=== PATIENT | female | born 1995 | race Caucasian/White ===

== ENCOUNTER 2017-01-21 02:10 | Emergency (ER) | payer SELFPAY ==
[~2017-01-21] VITALS: Ht 172.7 cm; Wt 81.6 kg
[~2017-01-21 02:10] MED LIST: BCP
--- OUTSIDE RECORDS SUMMARY | 2017-01-21 02:16 | XMS REPORT | Continuity of Care Document ---
Author Author [facility] Address Unknown Phone Unavailable Allergies Medications Problems Date Dx Coded Attending Type Code Diagnosis Diagnosed By 09/27/2009 311 MO DEPRESS NOS 09/27/2009 ROSA MARIA CARDOZA PHD 311 MO DEPRESS NOS 09/27/2009 ROSA MARIA CARDOZA PHD 311 MO DEPRESS NOS 10/12/2009 313.81 CD OPPOSITIONAL DEFIANT 10/12/2009 ROSA MARIA CARDOZA PHD 313.81 CD OPPOSITIONAL DEFIANT 10/12/2009 ROSA MARIA CARDOZA PHD 313.81 CD OPPOSITIONAL DEFIANT 07/23/2011 296.90 MOOD DISORDER NOS 07/23/2011 314.00 ADHD INATTENTIVE 07/23/2011 ROSA MARIA CARDOZA PHD 296.90 MOOD DISORDER NOS 07/23/2011 ROSA MARIA CARDOZA PHD 314.00 ADHD INATTENTIVE 07/23/2011 ROSA MARIA CARDOZA PHD 296.90 MOOD DISORDER NOS 07/23/2011 ROSA MARIA CARDOZA PHD 314.00 ADHD INATTENTIVE 08/24/2011 305.20 CANNABIS ABUSE 08/24/2011 307.1 EA ANOREXIA NERVOSA 08/24/2011 307.51 EA BULIMIA NERVOSA 08/24/2011 783.0 ANOREXIA 08/24/2011 ROSA MARIA CARDOZA PHD 305.20 CANNABIS ABUSE 08/24/2011 ROSA MARIA CARDOZA PHD 307.1 EA ANOREXIA NERVOSA 08/24/2011 ROSA MARIA CARDOZA PHD 307.51 EA BULIMIA NERVOSA 08/24/2011 ROSA MARIA CARDOZA PHD 783.0 ANOREXIA 08/24/2011 ROSA MARIA CARDOZA PHD 305.20 CANNABIS ABUSE 08/24/2011 ROSA MARIA CARDOZA PHD 307.1 EA ANOREXIA NERVOSA 08/24/2011 ROSA MARIA CARDOZA PHD 307.51 EA BULIMIA NERVOSA 08/24/2011 ROSA MARIA CARDOZA PHD 783.0 ANOREXIA 09/05/2011 304.30 CANNABIS DEPENDENCE 09/05/2011 ROSA MARIA CARDOZA PHD 304.30 CANNABIS DEPENDENCE 09/05/2011 ROSA MARIA CARDOZA PHD 304.30 CANNABIS DEPENDENCE 10/05/2011 296.32 MO DEPRESSIVE RECURRENT MODERATE 10/05/2011 ROSA MARIA CARDOZA PHD 296.32 MO DEPRESSIVE RECURRENT MODERATE 10/05/2011 ROSA MARIA CARDOZA PHD 296.32 MO DEPRESSIVE RECURRENT MODERATE 02/05/2012 312.81 CD - CHILDHOOD ONSET TYPE 02/05/2012 ROSA MARIA CARDOZA PHD 312.81 CD - CHILDHOOD ONSET TYPE Procedures Code [place] [address] INDIV PSYTX 45/50 MIN 01/04/2012 29233 INDIV PSYTX 45/50 MIN 02/05/2012 26425 PSYCH FAMILY TX W/PAT 03/19/2012 Results Encounters ACCT No. Visit Date/Time Discharge Status Pt. Type Provider Facility Loc./Unit Complaint [id number] 03/18/2012 14:59:00 03/18/2012 23: 59:59 CLS Outpatient ROSA MARIA CARDOZA PHD [id number] 02/05/2012 17:05:00 02/05/2012 23: 59:59 CLS Outpatient [id number] 01/03/2012 16:10:00 01/03/2012 23: 59:59 CLS Outpatient ROSA MARIA CARDOZA PHD [id number] 05/05/2013 03:06:00 2013 04:07:00 DIS Emergency [id number] 09/06/2012 03:40:00 2012 07:46:00 DIS Emergency
--- OUTSIDE RECORDS SUMMARY | 2017-01-21 02:16 | XMS REPORT ---
Author Author ALISSA DÍAZ [facility] eClinicalWorks Address Unknown Phone Unavailable Care Team Providers Care Correctional Therapy Teacher Name Role Phone ALISSA DÍAZ CP Unavailable Allergies, Adverse Reactions, Alerts Substance Reaction Event Type N.K.D.A. Info Not Available Non Drug Allergy Problems Problem Type Condition Code Onset Dates Condition Status Assessment Acute pharyngitis, unspecified J02.9 Active Problem Conduct disorder, childhood onset type 312.81 Active Problem Cannabis dependence, unspecified abuse 304.30 Active Assessment Seasonal allergies J30.2 Active Problem Attention deficit disorder of childhood without mention of hyperactivity 314.00 Active Problem Bulimia nervosa 307.51 Active Problem Unspecified episodic mood disorder 296.90 Active Problem Anorexia 783.0 Active Problem Major depressive disorder, recurrent episode, moderate 296.32 Active Problem Anorexia nervosa 307.1 Active Problem Nondependent cannabis abuse, unspecified 305.20 Active Medications Medication Code System Code Instructions Start Date End Date Status Dosage Claritin [facility] [address]-77 10 MG Orally Once a day Jan 15, 2015 Mar 16, 2015 1 tablet Procedures Procedure Coding System Code Date Office Visit, Est Pt., Level 3 CPT-4 47173 Jan 15, 2015 STREP A ASSAY W/OPTIC CPT-4 53000 Jan 15, 2015 Vital Signs Date/Time: Jan 15, 2015 Temperature 97.8 F Weight 179 lbs Height 68 in BMI 27.21 Index Blood Pressure Diastolic 82 mmHg Blood Pressure Systolic 104 mmHg Cardiac Monitoring Heart Rate 80 bpm BMIPercentile 89.63 % Wt Percentile 95.07 % Results Name Result Date Reference Range Unit Abnormality Flag STREP A (IN HOUSE) ----STREP A negative 20150115 ----Control + 20150115 ----Lot # [id number] ----Exp date JUN [id number] Summary Purpose eClinicalWorks Submission
[2017-01-21] MEDS ORDERED: LACTATED RINGERS 1,000 ML IV ONE (02:26)
[2017-01-21] MEDS ORDERED: ONDANSETRON 4 MG/2 ML (SDV) Z0FRAN IVP ONE ×2 (02:30→04:15)
--- NOTE | 2017-01-21 02:38 | ED GI ---
General Chief Complaint: Abdominal/GI Problems Stated Complaint: VOMITING Nursing Triage Note: N/V/D SINCE 2199 Sepsis Screen: No Definite Risk Source of Information: Patient History of Present Illness Time Seen By Provider: 02:25 Initial Comments ARRIVES VIA POV C/O NAUSEA/VOMITING/DIARRHEA SINCE 2199 GENARO HAS NO IDEA HOW MANY EPISODES OF VOMITING OR DIARRHEA SHE HAS HAD --STATES "NON- STOP" "AND I CRAPPED MY PANTS A FEW TIMES" . HAS HAD MOSTLY DRY HEAVES UNKNOWN IF SHE HAS HAD FEVER ,BUT STATES SHE HAS "HOT AND COLD FLASHES" DENIES ABDOMINAL PAIN, BUT STATES HER BACK AND STOMACH ARE SORE FROM HEAVING ONLY FOOD INTAKE TODAY WAS MACARONI AND CHEESE, PLUS BRATS AT 1700 NO ONE ELSE ILL AND NO SUSPICIOUS FOODS HAS ONLY DRANK A FEW SIPS OF WATER TODAY, NO OTHER FLUID INTAKE STILL VOIDING A NORMAL AMOUNT NO HISTORY OF GI PROBLEMS LMP--TODAY, NO CONTROL PCP: DR. CISNEROS Allergies and Home Medications Allergies Coded Allergies: No Known Drug Allergies (Unverified , 09/06/12) Home Medications Lactobacillus Acidophilus 1 Gm Powder, 1 GM MC QID for 7 Days, #1 Prescribed by: LEATHA MOCTEZUMA on 01/21/17 0440 Ondansetron 4 Mg Tab.rapdis, 4 MG PO Q4H, #10 Prescribed by: LEATHA MOCTEZUMA on 01/21/17 0346 Review of Systems Constitutional: see HPI Respiratory: No Symptoms Reported Cardiovascular: No Symptoms Reported Gastrointestinal: See HPI, Diarrhea, Nausea, Poor Appetite, Poor Fluid Intake, Vomiting Genitourinary: No Symptoms Reported Musculoskeletal: see HPI Skin: no symptoms reported Psychiatric/Neurological: No Symptoms Reported Endocrine: No Symptoms Reported Hematologic/Lymphatic: No Symptoms Reported Past Onsalbo-Oyciiy-Nonrvg Hx Patient Social History Alcohol Use: Occasionally Uses Number of Drinks Today: 0 Recreational Drug Use: Yes (XANAX--NOT PRESCRIBED TO HER; TESTED + FOR THC, BENZO'S AND OXYCODONE ON 01/21/17) Drug of Choice: XANAX--NOT PRESCRIBED TO HER;TESTED + FOR THC, BENZO'S & OXYCODONE 01/21/17 Smoking Status: Current Someday Smoker Type Used: Cigarettes 2nd Hand Smoke Exposure: Yes Recent Foreign Travel: No Contact w/Someone Who Travel: No Recent Infectious Disease Expo: No Recent Hopitalizations: No Immunizations Up To Date Tetanus Booster (TDap): Unknown Seasonal Allergies Seasonal Allergies: No Surgeries History of Surgeries: No Respiratory History of Respiratory Disorde: No Cardiovascular History of Cardiac Disorders: No Neurological History of Neurological Disord: No Reproductive System : No Last Menstrual Period: Jan 21, 2017 Hx Reproductive Disorders: No Sexually Transmitted Disease: No Female Reproductive Disorders: Denies Genitourinary History of Genitourinary Disor: No Gastrointestinal History of Gastrointestinal Di: No Musculoskeletal History of Musculoskeletal Dis: No Endocrine History of Endocrine Disorders: No HEENT History of HEENT Disorders: No Cancer History of Cancer: No Psychosocial History of Psychiatric Problem: No Integumentary History of Skin or Integumenta: No Blood Transfusions History of Blood Disorders: No Physical Exam Vital Signs VS - Last 72 Hours, by Label 01/21/17 02:25 Temp 96.9 Pulse 88 Resp 18 B/P (MAP) 112/67 (82) Pulse Ox 98 O2 Delivery Room Air Capillary Refill : Less Than 3 Seconds General Appearance: WD/WN, no apparent distress HEENT: PERRL/EOMI, other (ORAL MUCOSA MOIST) Neck: normal inspection Respiratory: normal breath sounds, no respiratory distress, no accessory muscle use Cardiovascular: normal peripheral pulses, regular rate, rhythm, no edema, no murmur Gastrointestinal: normal bowel sounds, non tender, soft, no organomegaly, no pulsatile mass Extremities: normal inspection, no pedal edema, normal capillary refill Back: normal inspection, no CVA tenderness Neurologic/Psychiatric: traffic representative II-XII nml as tested, no motor/sensory deficits, alert, normal mood/affect, oriented x 3 Skin: normal color, warm/dry Progress/Results/Core Measures Results/Orders Lab Results Laboratory Tests Test 01/21/17 02:35 01/21/17 04:18 Range/Units White Blood Count 10.6 4.3-11.0 10^3/uL Red Blood Count 4.48 4.35-5.85 10^6/uL Hemoglobin 13.6 11.5-16.0 G/DL Hematocrit 40 35-52 % Mean Corpuscular Volume 89 80-99 FL Mean Corpuscular Hemoglobin 30 25-34 PG Mean Corpuscular Hemoglobin Concent 34 32-36 G/DL Red Cell Distribution Width 12.5 10.0-14.5 % Platelet Count 201 130-400 10^3/uL Mean Platelet Volume 10.3 7.4-10.4 FL Neutrophils (%) (Auto) 84 H 42-75 % Lymphocytes (%) (Auto) 8 L 12-44 % Monocytes (%) (Auto) 7 0-12 % Eosinophils (%) (Auto) 1 0-10 % Basophils (%) (Auto) 0 0-10 % Neutrophils # (Auto) 8.9 H 1.8-7.8 X 10^3 Lymphocytes # (Auto) 0.8 L 1.0-4.0 X 10^3 Monocytes # (Auto) 0.8 0.0-1.0 X 10^3 Eosinophils # (Auto) 0.1 0.0-0.3 10^3/uL Basophils # (Auto) 0.0 0.0-0.1 10^3/uL Sodium Level 143 135-145 MMOL/L Potassium Level 3.4 L 3.6-5.0 MMOL/L Chloride Level 110 H 98-107 MMOL/L Carbon Dioxide Level 21 21-32 MMOL/L Anion Gap 12 5-14 MMOL/L Blood Urea Nitrogen 13 7-18 MG/DL Creatinine 0.79 0.60-1.30 MG/DL Estimat Glomerular Filtration Rate > 60 BUN/Creatinine Ratio 16 Glucose Level 118 H 70-105 MG/DL Calcium Level 9.0 8.5-10.1 MG/DL Total Bilirubin 0.8 0.1-1.0 MG/DL Aspartate Amino Transf (AST/SGOT) 18 5-34 U/L Alanine Aminotransferase (ALT/SGPT) 8 0-55 U/L Alkaline Phosphatase 72 40-136 U/L Total Protein 7.3 6.4-8.2 GM/DL Albumin 4.1 3.2-4.5 GM/DL Amylase Level 58 25-125 U/L Lipase 15 8-78 U/L Serum Test, Qualitative NEGATIVE NEGATIVE Serum Alcohol < 10 <10 MG/DL Urine Color YELLOW Urine Clarity CLEAR Urine pH 5 5-9 Urine Specific [place] 1.020 1.016-1.022 Urine Protein 1+ H NEGATIVE Urine Glucose (UA) NEGATIVE NEGATIVE Urine Ketones 3+ H NEGATIVE Urine Nitrite NEGATIVE NEGATIVE Urine Bilirubin 1+ H NEGATIVE Urine Urobilinogen NORMAL NORMAL MG/DL Urine Leukocyte Esterase 1+ H NEGATIVE Urine RBC (Auto) 1+ H NEGATIVE Urine RBC NONE /HPF Urine WBC RARE /HPF Urine Squamous Epithelial Cells 2-5 /HPF Urine Crystals NONE /LPF Urine Bacteria TRACE /HPF Urine Casts NONE /LPF Urine Mucus LARGE H /LPF Urine Culture Indicated NO Urine Opiates Screen NEGATIVE NEGATIVE Urine Oxycodone Screen POSITIVE H NEGATIVE Urine Methadone Screen NEGATIVE NEGATIVE Urine Propoxyphene Screen NEGATIVE NEGATIVE Urine Barbiturates Screen NEGATIVE NEGATIVE Ur Tricyclic Antidepressants Screen NEGATIVE NEGATIVE Urine Phencyclidine Screen NEGATIVE NEGATIVE Urine Amphetamines Screen NEGATIVE NEGATIVE Urine Methamphetamines Screen NEGATIVE NEGATIVE Urine Benzodiazepines Screen POSITIVE H NEGATIVE Urine Cocaine Screen NEGATIVE NEGATIVE Urine Cannabinoids Screen POSITIVE H NEGATIVE My Orders Orders - LEATHA MOCTEZUMA DO Saline Lock/Iv-Start (01/21/17 02:26) Alcohol (01/21/17 02:26) Amylase (01/21/17 02:26) Cbc With Automated Diff (01/21/17 02:26) Comprehensive Metabolic Panel (01/21/17 02:26) Drug Screen Stat (Urine) (01/21/17 02:26) Hcg,Qualitative Serum (01/21/17 02:26) Lipase (01/21/17 02:26) Ua Culture If Indicated (01/21/17 02:26) Saline Lock/Iv-Start (01/21/17 02:26) Lactated Ringers (Lr 1000 Ml Iv Solution (01/21/17 02:26) Ondansetron Injection (Zofran Injectio (01/21/17 02:30) Stool Culture (01/21/17 02:53) Fecal Wbc (01/21/17 02:53) C Difficile Ag + Toxin A/B. (01/21/17 02:53) Ondansetron Injection (Zofran Injectio (01/21/17 04:15) Medications Given in ED Current Medications Medications Dose Ordered Sig/Timo Route Start Time Stop Time Status Last Admin Dose Admin Lactated Ringer's 1,000 ml @ 0 mls/hr Q0M ONCE IV 01/21/17 02:26 01/21/17 02:28 DC 01/21/17 02:33 0 MLS/HR Ondansetron HCl 4 mg ONCE ONCE IVP 01/21/17 02:30 01/21/17 02:31 DC 01/21/17 02:33 4 MG Ondansetron HCl 4 mg ONCE ONCE IVP 01/21/17 04:15 124/17 04:16 DC 01/21/17 04:19 4 MG Vital Signs/I&O Vital Sign - Last 12Hours 01/21/17 02:25 Temp 96.9 Pulse 88 Resp 18 B/P (MAP) 112/67 (82) Pulse Ox 98 O2 Delivery Room Air Blood Pressure Mean: 82 Progress Note : Progress Note FEELS MUCH BETTER AND NAUSEA RESOLVED WITH ZOFRAN GIVEN WATER + ICE CHIPS--NO FURTHER VOMITING HAD DIARRHEA X1 ON ARRIVAL, THEN NO FURTHER DIARRHEA PT ABLE TO VOID PRIOR TO DISMISSAL Departure Impression Impression: Primary Impression: Gastroenteritis Additional Impression: Mild dehydration Disposition: HOME, SELF-CARE Condition: Improved Departure-Patient Inst. Referrals: GEN CISNEROS DO (PCP/Family) Primary Care Physician Patient Instructions: Dehydration, Adult (DC), [id number], Viral Gastroenteritis, Adult (DC) Add. Discharge Instructions: CLEAR LIQUIDS, SIPS AT A TIME--WATER, BROTH, JELLO, GATORADE TOMORROW IF YOU ARE BETTER, ADD BRATS DIET TO CLEAR LIQUIDS--BANANAS, RICE, APPLESAUCE, TOAST, SALTINES FOLLOW UP WITH YOUR DR TOMORROW IF NO BETTER All discharge instructions reviewed with patient and/or family. Voiced understanding. Scripts Lactobacillus Acidophilus (Acidophilus Lactobacillus) 1 Gm Powder 1 GM MC QID for 7 Days, #1 EA Prov: LEATHA MOCTEZUMA DO 01/21/17 Ondansetron (Zofran Odt) 4 Mg Tab.rapdis 4 MG PO Q4H for Nausea/Vomiting, #10 TAB Prov: LEATHA MOCTEZUMA DO 01/21/17 LEATHA MOCTEZUMA DO Jan 21, 2017 02:37
[2017-01-21 02:55] LABS: BASOPHILS % (AUTO) 0 % (0-10); EOSINOPHILS # (AUTO) 0.1 10^3/uL (0.0-0.3); EOSINOPHILS % (AUTO) 1 % (0-10); LYMPHOCYTES # (AUTO) 0.8 X 10^3 (1.0-4.0); LYMPHOCYTES % (AUTO) 8 % (12-44); MEAN CORPUSCULAR HEMOGLOBIN 30 PG (25-34); MEAN CORPUSCULAR HGB CONC 34 G/DL (32-36); MEAN CORPUSCULAR VOLUME 89 FL (80-99); MEAN PLATELET VOLUME 10.3 FL (7.4-10.4); MONOCYTES # (AUTO) 0.8 X 10^3 (0.0-1.0); MONOCYTES % (AUTO) 7 % (0-12); NEUTROPHILS # (AUTO) 8.9 X 10^3 (1.8-7.8); NEUTROPHILS % (AUTO) 84 % (42-75); PLATELET COUNT 201 10^3/uL (130-400); RED BLOOD COUNT 4.48 10^6/uL (4.35-5.85); RED CELL DISTRIBUTION WIDTH 12.5 % (10.0-14.5); WHITE BLOOD COUNT 10.6 10^3/uL (4.3-11.0)
[2017-01-21 03:15] LABS: ALANINE AMINOTRANSFERASE 8 U/L (0-55); ALBUMIN 4.1 GM/DL (3.2-4.5); ALCOHOL < 10 MG/DL (<10); AMYLASE 58 U/L (25-125); ANION GAP 12 MMOL/L (5-14); ASPARTATE AMINO TRANSFERASE 18 U/L (5-34); BILIRUBIN,TOTAL 0.8 MG/DL (0.1-1.0); BLOOD UREA NITROGEN 13 MG/DL (7-18); BUN/CREATININE RATIO 16; CARBON DIOXIDE 21 MMOL/L (21-32); CHLORIDE 110 MMOL/L (98-107); CREATININE SERUM 0.79 MG/DL (0.60-1.30); GFR ESTIMATED > 60; GLUCOSE 118 MG/DL (70-105); LIPASE 15 U/L (8-78); POTASSIUM 3.4 MMOL/L (3.6-5.0); SODIUM 143 MMOL/L (135-145); TOTAL PROTEIN 7.3 GM/DL (6.4-8.2)
[2017-01-21] MEDS ORDERED: ONDA4TAB8 PO (03:46)
[2017-01-21 04:25] LABS: KETONES,URINE 3+ (NEGATIVE); LEUKOCYTE ESTERASE ,URINE 1+ (NEGATIVE); NITRITE,URINE NEGATIVE (NEGATIVE); PH,URINE 5 (5-9); PROTEIN,URINE 1+ (NEGATIVE); UROBILINOGEN,URINE NORMAL (NORMAL)
[2017-01-21 04:35] LABS: BILIRUBIN,URINE 1+ (NEGATIVE); WBC,URINE RARE /HPF
[2017-01-21] MEDS ORDERED: LACT1POW8 MC (04:40)
[2017-01-21 04:49] VITALS: BP 116/68
== END 2017-01-21 04:46 | disposition home or self-care (01) ==
LOC: EDUNIT# 02:10 → ER 02:12
DX: K52.9 Noninfective gastroenteritis and colitis, unspecified (principal); E86.0 Dehydration; F17.210 Nicotine dependence, cigarettes, uncomplicated
CPT/HCPCS: 36415; 80053; 80306; 80320; 81000; 82150; 83690; 84703; 85025; 87045; 87046; 87324; 87449; 89055

== ENCOUNTER 2017-12-29 11:41 | Emergency (ER) | payer SELFPAY ==
[~2017-12-29] VITALS: Ht 170.2 cm; Wt 76.2 kg
[~2017-12-29 11:41] MED LIST changes: +LACT1POW8 MC; +ONDA4TAB8 PO
--- OUTSIDE RECORDS SUMMARY | 2017-12-29 11:45 | XMS REPORT ---
Author Author [facility] Address [address] [place] [address] Care Team Providers Care Forepart Rounder Name Role Phone AL, CELSO Unavailable PROBLEMS Type Condition ICD9-CM Code XQY90-CP Code Onset Dates Condition Status SNOMED Code Problem Panic disorder F41.0 Active 417739339 Problem Cannabis abuse F12.10 Active 79541784 Problem Social anxiety disorder F40.10 Active 07221925 Problem Anxiety F41.9 Active 63662689 ALLERGIES No Known Allergies ENCOUNTERS Encounter Location Date Diagnosis [facility] [address] [address] Dec, [facility] [address] [address] Nov, Social anxiety disorder F40.10 ; Panic disorder F41.0 and Cannabis abuse F12.10 [facility] [address] [address] Nov, [facility] [address] [address] Nov, Anxiety F41.9 [facility] [address] [address] Apr, Sore throat J02.9 ; Body aches R52 ; Other viral agents as the cause of diseases classified elsewhere B97.89 and Acute upper respiratory infection, unspecified J06.9 [facility] [address] [address] Dec, Acute pharyngitis, unspecified J02.9 and Seasonal allergies J30.2 [facility] [address] [address] 14 May, 2014 [facility] [place] [facility] [address] [id number] [place] [address] 13 May, 2014 [facility] [place] [facility] [address] [id number] [place] [address] 14 Apr, 2012 [facility] [place] [facility] [address] [id number] [place] [address] Feb, [facility] [place] [facility] [address] [id number] [place] [address] Jan, [facility] [place] [facility] [address] [id number] [place] [address] Jan, [facility] [place] [facility] [address] [id number] [place] [address] Dec, [facility] [place] [facility] [address] [id number] [place] [address] Dec, [facility] [place] [facility] [address] [id number] [place] [address] Dec, [facility] [place] [facility] [address] [id number] [place] [address] Dec, [facility] [place] [facility] [address] [facility] [id number] [place] [address] Nov, [facility] [place] [facility] [address] [id number], [place] [address] Oct, [facility] [place] [facility] [address] [id number], [place] [address] 05 Oct, 2011 [facility] [place] [facility] [address] [id number] [place] [address] Sep, [facility] [place] [facility] [address] [id number], [place] [address] Sep, [facility] [place] [facility] [address] [id number] [place] [address] Aug, [facility] [place] [facility] [address] [id number] [address] Aug, [facility] [address] [id number], [place] [address] Aug, [facility] [address] [id number], [place] [address] Aug, [facility] [address], [place] [address] Aug, [facility] [address], [place] [address] Jul, [facility] [address], [place] [address] Jan, [facility] [address], [place] [address] Dec, [facility] [address], [place] [address] Dec, [facility] [address] [id number] [address] Nov, IMMUNIZATIONS No Known Immunizations SOCIAL HISTORY Never Assessed REASON FOR VISIT [place] [facility] Activity Details Follow Up prn Reason: Follow-up VITAL SIGNS Height 68 in 2017-12-17 Weight 169.1 lbs 2017-12-17 Heart Rate 100 bpm 2017-12-17 Respiratory Rate 20 2017-12-17 BMI 25.71 kg/m2 2017-12-17 Blood pressure systolic 114 mmHg 2017-12-17 Blood pressure diastolic 62 mmHg 2017-12-17 MEDICATIONS Medication Instructions Dosage Frequency Start Date End Date Duration Status Cymbalta 60 mg Orally Once a day 1 capsule 24h Nov, 30 day(s) Not-Taking Cymbalta 30 MG Orally Once a day x 7 days then increase to 60 mg. 1 capsule Nov, 7 days Not-Taking RESULTS No Results PROCEDURES No Known procedures INSTRUCTIONS MEDICATIONS ADMINISTERED No Known Medications MEDICAL (GENERAL) HISTORY Type Description Date Surgical History No Surgical history information
--- OUTSIDE RECORDS SUMMARY | 2017-12-29 11:45 | XMS REPORT ---
Author Author HORTENCIA ARMSTRONG Organization [facility] Address [address] [place] [address] Care Team Providers Care Hunter Name Role Phone HORTENCIA ARMSTRONG Unavailable PROBLEMS Type Condition ICD9-CM Code BVC06-CQ Code Onset Dates Condition Status SNOMED Code Problem Panic disorder F41.0 Active 112486885 Problem Cannabis abuse F12.10 Active 12035302 Problem Social anxiety disorder F40.10 Active 21243828 Problem Anxiety F41.9 Active 53007737 ALLERGIES No Information ENCOUNTERS Encounter Location Date Diagnosis [place] [id number] [address] Dec, [facility] [address] [address] Nov, Social anxiety disorder F40.10 ; Panic disorder F41.0 and Cannabis abuse F12.10 [facility] [address] [address] Nov, [facility] [id number] [place] [address] Nov, Anxiety F41.9 [facility] [address] [address] Apr, Sore throat J02.9 ; Body aches R52 ; Other viral agents as the cause of diseases classified elsewhere B97.89 and Acute upper respiratory infection, unspecified J06.9 [facility] [address] [address] Dec, Acute pharyngitis, unspecified J02.9 and Seasonal allergies J30.2 [place] [address] [address] May, [facility] [address] [id number] [place] [address] 13 May, 2014 [facility] [address] [id number] [place] [address] 14 Apr, 2012 [facility] [place] [facility] [address] [id number] [place] [address] Feb, [facility] [address] [id number] [place] [address], [place] [address] Jan, [facility] [address] [id number] [place] [address] Jan, [facility] [address] [id number] [place] [address] Dec, [facility] [address] [id number] [place] [address] Dec, [facility] [address] [id number] [place] [address] Dec, [facility] [place] [facility] [address] [id number] [place] [address] Dec, [facility] [address] [id number] [place] [address] Nov, [facility] [place] [facility] [address] [id number] [place] [address] Oct, [facility] [place] [facility] [address] [id number] [place] [address] Oct, [facility] [place] [facility] [address] [id number] [place] [address] Sep, [facility] [place] [facility] [address] [id number] [place] [address] Sep, [facility] [place] [facility] [address] [id number] [place] [address] Aug, [facility] [place] [facility] [address] [id number], [place] [address] Aug, [facility] [address], [place] [address] Aug, [facility] [address], [place] [address] Aug, [facility] [address], [place] [address] Aug, [facility] [address], [place] [address] Jul, [facility] [address], [place] [address] Jan, [facility] [address], [place] [address] Dec, [facility] [address], [place] [address] Dec, [facility] [address], [place] [address] Nov, IMMUNIZATIONS No Known Immunizations SOCIAL HISTORY Never Assessed REASON FOR VISIT requesting return call PLAN OF CARE VITAL SIGNS MEDICATIONS Unknown Medications RESULTS No Results PROCEDURES No Known procedures INSTRUCTIONS MEDICATIONS ADMINISTERED No Known Medications MEDICAL (GENERAL) HISTORY Type Description Date Surgical History No Surgical history information
--- OUTSIDE RECORDS SUMMARY | 2017-12-29 11:45 | XMS REPORT ---
Author Author ANDREWTOI Munoz Organization [facility] Address [address] [place] [address] Care Team Providers Care Service Promoter Salesperson Name Role Phone TOI ANDREW Unavailable PROBLEMS Type Condition ICD9-CM Code [id number] Code Onset Dates Condition Status SNOMED Code Problem Anorexia 783.0 Active 33428975 Problem Conduct disorder, childhood onset type 312.81 Active 76431090 Problem Attention deficit disorder of childhood without mention of hyperactivity 314.00 Active 34399074 Problem Major depressive disorder, recurrent episode, moderate 296.32 Active 62987154 Problem Unspecified episodic mood disorder 296.90 Active 310532573 Problem Anorexia nervosa 307.1 Active 35430747 Problem Bulimia nervosa 307.51 Active 31490531 Problem Cannabis dependence, unspecified abuse 304.30 Active 75147608 Problem Nondependent cannabis abuse, unspecified 305.20 Active 717293046 ALLERGIES No Known Allergies ENCOUNTERS Encounter Location Date Diagnosis [facility] [id number] [place] [address] Apr, Sore throat J02.9 ; Body aches R52 ; Other viral agents as the cause of diseases classified elsewhere B97.89 and Acute upper respiratory infection, unspecified J06.9 [facility] [id number] [place] [address] Dec, Acute pharyngitis, unspecified J02.9 and Seasonal allergies J30.2 [facility] [id number] [place] [address] May, [facility] [id number] [place] [address] May, [facility] [id number] [place] [address] Apr, [facility] [place] [facility] [address] [id number] [place] [address] Feb, [facility] [place] [facility] [address] [id number] [place] [address] Jan, [facility] [place] [facility] [address] [id number] [place] [address] Jan, [facility] [place] [facility] [address] [id number] [place] [address] Dec, [facility] [place] [facility] [address] [id number] [place] [address] Dec, [facility] [place] [facility] [address] [id number] [place] [address] Dec, [facility] [place] [facility] [address] [id number] [place] [address] Dec, [facility] [place] [facility] [address] [id number] [place] [address] Nov, [facility] [place] [facility] [address] [id number] [place] [address] Oct, [facility] [place] [facility] [address] [id number] [place] [address] Oct, [facility] [place] [facility] [address] [id number] [place] [address] Sep, [facility] [place] [facility] [address] [id number] [place] [address] Sep, [facility] [place] [facility] [address] [id number] [place] [address] Aug, [facility] [place] [facility] [address] [id number] [place] [address] Aug, [facility] [place] [facility] [address] [id number] [place] [address] Aug, [facility] [place] [facility] [address] [id number], [place] [address] Aug, [facility] [address] [facility] [id number], [place] [address] Aug, [facility] [address] [facility] [id number], [place] [address] Jul, [facility] [address] [facility] [id number], [place] [address] Jan, [facility] [address] [facility] [id number], [place] [address] Dec, [facility] [address] [facility] [id number], [place] [address] Dec, [facility] [address] [facility] [id number], [place] [address] Nov, IMMUNIZATIONS No Known Immunizations SOCIAL HISTORY Never Assessed REASON FOR VISIT sore throat and cough since yesterday. also has chest congestion and body aches. [email or web address] PLAN OF CARE Activity Details Follow Up prn Reason: VITAL SIGNS Height 68 in 2016-04-23 Weight 189.8 lbs 2016-04-23 Temperature 97.9 degrees Fahrenheit 2016-04-23 Heart Rate 80 bpm 2016-04-23 Respiratory Rate 18 2016-04-23 BMI 28.86 kg/m2 2016-04-23 Blood pressure systolic 112 mmHg 2016-04-23 Blood pressure diastolic 70 mmHg 2016-04-23 MEDICATIONS No Known Medications RESULTS Name Result Date Reference Range INFLUENZA A & B (IN HOUSE) 2016-04-23 INFLUENZA A negative INFLUENZA B negative Control + Lot # [id number] Exp date 2017 STREP A (IN HOUSE) 2016-04-23 STREP A negative Control + Lot # [id number] Exp date nov 05 PROCEDURES Procedure Date Ordered Result Body Site STREP A ASSAY W/OPTIC April 23, 2016 INFLUENZA ASSAY W/OPTIC April 23, 2016 INSTRUCTIONS MEDICATIONS ADMINISTERED No Known Medications
--- OUTSIDE RECORDS SUMMARY | 2017-12-29 11:45 | XMS REPORT | Continuity of Care Document ---
Author Author [facility] Organization [facility] Address Unknown Phone Unavailable Care Team Providers Care Clinical Nursing Director Name Role Phone GEN CISNEROS DO PP Insurance Providers Payer Name Policy Number Subscriber Name Relationship [facility] [id number] Rachana Zamora V 01 Self / Same As Patient Advance Directives Directive Response Recorded Date Advance Directives N 09/06/12 3:50am Problems No Known Problems or Medical conditions. Social History History Response Recorded Date/Time Alcohol Use Occasionally Uses 09/06/12 3: 50am Recreational Drug Use Y 09/06/12 3:50am Allergies, Adverse Reactions, Alerts Allergen Type Severity Reaction Last Updated No Known Drug Allergies 09/06/12 Medications No known medications Response Recorded Date/Time Status not known Unknown Results No Known Relevant Diagnostic Tests, Laboratory Data and/or Discharge Summary. Encounters Encounter Location Date/Time Departed Emergency Room [facility] 3:40am
--- OUTSIDE RECORDS SUMMARY | 2017-12-29 11:45 | XMS REPORT ---
Author Author HORTENCIA ARMSTRONG Organization [facility] [place] Address [address] [place] [address] Care Team Providers Care Director Of Oncology Name Role Phone HORTENCIA ARMSTRONG Unavailable PROBLEMS Type Condition ICD9-CM Code TPV46-LJ Code Onset Dates Condition Status SNOMED Code Problem Panic disorder F41.0 Active 098126228 Problem Cannabis abuse F12.10 Active 47223131 Problem Social anxiety disorder F40.10 Active 20353154 Problem Anxiety F41.9 Active 90493235 ALLERGIES No Known Allergies ENCOUNTERS Encounter Location Date Diagnosis [address] [address] Dec, [facility] [place] [address] [place] [address] Nov, Social anxiety disorder F40.10 ; Panic disorder F41.0 and Cannabis abuse F12.[address] [address] Nov, [facility] [place] [address] [place] [id number] [place] [address] Nov, Anxiety F41.9 [facility] [address] [address] Apr, Sore throat J02.9 ; Body aches R52 ; Other viral agents as the cause of diseases classified elsewhere B97.89 and Acute upper respiratory infection, unspecified J06.9 [facility] [address] [place] [id number] [place] [address] Dec, Acute pharyngitis, unspecified J02.9 and Seasonal allergies J30.[address] [address] May, [facility] [address] [id number] [place] [address] May, 2014 [facility] [address] [id number] [place] [address] 14 Apr, 2012 [facility] [place] [facility] [address] [id number] [place] [address] Feb, [facility] [address] [id number] [place] [address] Jan, [facility] [address] [id number] [place] [address] Jan, [facility] [place] [facility] [address] [id number] [place] [address] Dec, [facility] [address] [id number] [place] [address] Dec, [facility] [address] [id number] [place] [address] Dec, [facility] [address] [id number] [place] [address] Dec, [facility] [address] [id number] [place] [address] Nov, [facility] [place] [facility] [address] [id number] [place] [address] Oct, [facility] [place] [facility] [address] [id number] [place] [address] Oct, [facility] [place] [facility] [address] [id number] [place] [address] Sep, [facility] [place] [facility] [address] [id number] [place] [address] Sep, [facility] [place] [facility] [address] [id number] [place] [address] Aug, [facility] [place] [facility] [address] [id number], [place] [address] Aug, [facility] [place] [id number] [address] Aug, [facility] [place] [address] [id number] [address] Aug, [facility] [place] [address] [id number] [address] Aug, [facility] [place] [address] [id number] [address] Jul, [facility] [place] [address] [id number] [address] Jan, [facility] [place] [address] [address] Dec, [facility] [place] [address], [place] [address] Dec, [facility] [place] [address] [id number], [place] [address] Nov, IMMUNIZATIONS No Known Immunizations SOCIAL HISTORY Never Assessed REASON FOR VISIT panic attacks have been getting worse and coming out of no where. Pt states that she has had anxiety for a long time but the panic attacks are slowly getting worse. Suni TRAYLOR PLAN OF CARE Activity Details Pending Test TSH VITAL SIGNS Height 68 in 2017-12-16 Weight 169.5 lbs 2017-12-16 Temperature 97.8 degrees Fahrenheit 2017-12-16 Heart Rate 75 bpm 2017-12-16 Respiratory Rate 20 2017-12-16 BMI 25.77 kg/m2 2017-12-16 Blood pressure systolic 136 mmHg 2017-12-16 Blood pressure diastolic 78 mmHg 2017-12-16 MEDICATIONS Medication Instructions Dosage Frequency Start Date End Date Duration Status Cymbalta 30 MG Orally Once a day x 7 days then increase to 60 mg. 1 capsule Nov, 7 days Active Cymbalta 60 mg Orally Once a day 1 capsule 24h Nov, 30 day(s) Active RESULTS No Results PROCEDURES Procedure Date Ordered Result Body Site COMPREHEN METABOLIC PANEL Dec 16, 2017 ASSAY THYROID STIM HORMONE Dec 16, 2017 COMPLETE CBC W/AUTO DIFF WBC Dec 16, 2017 INSTRUCTIONS MEDICATIONS ADMINISTERED No Known Medications MEDICAL (GENERAL) HISTORY Type Description Date Surgical History No Surgical history information
--- OUTSIDE RECORDS SUMMARY | 2017-12-29 11:46 | XMS REPORT | Continuity of Care Document ---
Author Author [facility] Address Unknown Phone Unavailable Allergies Active Description Code Type Severity Reaction Onset Reported/Identified Relationship to Patient Clinical Status Yes No Known Drug Allergies [id number] Drug Allergy Unknown N/A 09/06/2012 Medications There is no data. Problems Date Dx Coded Attending Type Code [...] CARDOZA PHD 307.51 EA BULIMIA NERVOSA 08/24/2011 SONY MCLAUGHLIN, ROSA MARIA Arreaga 783.0 ANOREXIA 09/05/2011 304.30 CANNABIS DEPENDENCE 09/05/2011 [...] PHD 312.81 CD - CHILDHOOD ONSET TYPE 09/06/2012 KELVIN CHOU, JACKIE A Ot 305.00 ALCOHOL ABUSE-UNSPEC 05/05/2013 LALO CHOU, ANDREAS Nunez Ot 305.00 ALCOHOL ABUSE-UNSPEC 05/05/2013 LALO CHOU, ANDREAS Nunez Ot 305.90 DRUG ABUSE NEC-UNSPEC 01/23/2017 JOSE ELIAS , LEATHA K Ot E86.0 DEHYDRATION 01/23/2017 JOSE ELIAS , LEATHA K Ot F17.210 NICOTINE DEPENDENCE, CIGARETTES, UNCOMPL 01/23/2017 JOSE ELIAS , LEATHA K Ot K52.9 NONINFECTIVE GASTROENTERITIS AND COLITIS 01/23/2017 JOSE ELIAS , LEATHA K Ot R11.2 NAUSEA WITH VOMITING, UNSPECIFIED 01/27/2017 JOSE ELIAS , LEATHA K Ot E86.0 DEHYDRATION 01/27/2017 JOSE ELIAS CHERY, LEATHA K Ot F17.210 NICOTINE DEPENDENCE, CIGARETTES, UNCOMPL 01/27/2017 JOSE ELIAS , LEATHA K Ot K52.9 NONINFECTIVE GASTROENTERITIS AND COLITIS 01/27/2017 JOSE ELIAS DO LEATHA K Ot R11.2 NAUSEA WITH VOMITING, UNSPECIFIED Procedures Code [place] [address] INDIV PSYTX 45/50 MIN 01/04/2012 03916 INDIV PSYTX 45/50 MIN 02/05/2012 06940 PSYCH FAMILY TX W/PAT 03/19/2012 Results Test Result Range Complete blood count (CBC) with automated white blood cell (WBC) differential - 01/21/17 02:35 Blood leukocytes automated count (number/volume) 10.6 10*3/uL 4.3-11.0 Blood erythrocytes automated count (number/volume) 4.48 10*6/uL 4.35-5.85 Venous blood hemoglobin measurement (mass/volume) 13.6 g/dL 11.5-16.0 Blood hematocrit (volume fraction) 40 % 35-52 Automated erythrocyte mean corpuscular volume 89 [foz_us] 80-99 Automated erythrocyte mean corpuscular hemoglobin (mass per erythrocyte) 30 pg 25-34 Automated erythrocyte mean corpuscular hemoglobin concentration measurement ( mass/volume) 34 g/dL 32-36 Automated erythrocyte distribution width ratio 12.5 % 10.0-14.5 Automated blood platelet count (count/volume) 201 10*3/uL 130-400 Automated blood platelet mean volume measurement 10.3 [foz_us] 7.4-10.4 Automated blood neutrophils/100 leukocytes 84 % 42-75 Automated blood lymphocytes/100 leukocytes 8 % 12-44 Blood monocytes/100 leukocytes 7 % 0-12 Automated blood eosinophils/100 leukocytes 1 % 0-10 Automated blood basophils/100 leukocytes 0 % 0-10 Blood neutrophils automated count (number/volume) 8.9 10*3 1.8-7.8 Blood lymphocytes automated count (number/volume) 0.8 10*3 1.0-4.0 Blood monocytes automated count (number/volume) 0.8 10*3 0.0-1.0 Automated eosinophil count 0.1 10*3/uL 0.0-0.3 Automated blood basophil count (count/volume) 0.0 10*3/uL 0.0-0.1 Serum or plasma choriogonadotropin ( test) detection - 01/21/17 02:35 Serum or plasma choriogonadotropin ( test) detection NEGATIVE NEGATIVE Comprehensive metabolic panel - 01/21/17 02:35 Serum or plasma sodium measurement (moles/volume) 143 mmol/L 135-145 Serum or plasma potassium measurement (moles/volume) 3.4 mmol/L 3.6-5.0 Serum or plasma chloride measurement (moles/volume) 110 mmol/L 98-107 Carbon dioxide 21 mmol/L 21-32 Serum or plasma anion gap determination (moles/volume) 12 mmol/L 5-14 Serum or plasma urea nitrogen measurement (mass/volume) 13 mg/dL 7-18 Serum or plasma creatinine measurement (mass/volume) 0.79 mg/dL 0.60-1.30 Serum or plasma urea nitrogen/creatinine mass ratio 16 NRG Serum or plasma creatinine measurement with calculation of estimated glomerular filtration rate > NRG Serum or plasma glucose measurement (mass/volume) 118 mg/dL 70-105 Serum or plasma calcium measurement (mass/volume) 9.0 mg/dL 8.5-10.1 Serum or plasma total bilirubin measurement (mass/volume) 0.8 mg/dL 0.1-1.0 Serum or plasma alkaline phosphatase measurement (enzymatic activity/volume) 72 U/L 40-136 Serum or plasma aspartate aminotransferase measurement (enzymatic activity/ volume) 18 U/L 5-34 Serum or plasma alanine aminotransferase measurement (enzymatic activity/volume ) 8 U/L 0-55 Serum or plasma protein measurement (mass/volume) 7.3 g/dL 6.4-8.2 Serum or plasma albumin measurement (mass/volume) 4.1 g/dL 3.2-4.5 Serum or plasma amylase measurement (enzymatic activity/volume) - 01/21/17 02: 35 Serum or plasma amylase measurement (enzymatic activity/volume) 58 U /L 25-125 Lipase - 01/21/17 02:35 Lipase 15 U/L 8-78 Serum or plasma ethanol measurement (mass/volume) - 01/21/17 02:35 Serum or plasma ethanol measurement (mass/volume) < mg/dL <10 Stool leukocytes detection by light microscopy - 01/21/17 02:50 FECAL WBC RESULTS FEW WBC'S OBSERVED ON DIRECT SMEAR NRG FECAL NOTE FECAL LEUKOCYTES MAY BE INTERMITTENTLY PRESENT OR NRG FECAL NOTE UNEVENLY DISTRIBUTED IN STOOL SPECIMENS, AND WBC NRG FECAL NOTE MORPHOLOGY DEGRADES DURING TRANSPORT NRG FECAL NOTE NOTE: NRG C DIFFICILE AG + TOXIN A/B. - 01/21/17 02:50 RESULTS NEGATIVE FOR ANTIGEN AND TOXIN A/B NRG Stool bacteria identification by culture - 01/21/17 02:50 Stool bacteria identification by culture N NRG Urine drug screening test - 01/21/17 04:18 Urine phencyclidine detection by screening method NEGATIVE NEGATIVE Urine benzodiazepines detection by screening method POSITIVE NEGATIVE Urine cocaine detection NEGATIVE NEGATIVE Urine amphetamines detection by screening method NEGATIVE NEGATIVE Urine methamphetamine detection by screening method NEGATIVE NEGATIVE Urine cannabinoids detection by screening method POSITIVE NEGATIVE Urine opiates detection by screening method NEGATIVE NEGATIVE Urine barbiturates detection NEGATIVE NEGATIVE Screening urine tricyclic antidepressants detection NEGATIVE NEGATIVE Urine methadone detection by screening method NEGATIVE NEGATIVE Urine oxycodone detection POSITIVE NEGATIVE Urine propoxyphene detection NEGATIVE NEGATIVE Complete urinalysis with reflex to culture - 01/21/17 04:18 Urine color determination YELLOW NRG Urine clarity determination CLEAR NRG Urine pH measurement by test strip 5 5-9 Specific gravity of urine by test strip 1.020 1.016- 1.022 Urine protein assay by test strip, semi-quantitative 1+ NEGATIVE Urine glucose detection by automated test strip NEGATIVE NEGATIVE Erythrocytes detection in urine sediment by light microscopy 1+ NEGATIVE Urine ketones detection by automated test strip 3+ NEGATIVE Urine nitrite detection by test strip NEGATIVE NEGATIVE Urine total bilirubin detection by test strip 1+ NEGATIVE Urine urobilinogen measurement by automated test strip (mass/volume) NORMAL NORMAL Urine leukocyte esterase detection by dipstick 1+ NEGATIVE Automated urine sediment erythrocyte count by microscopy (number/high power field) NONE NRG Automated urine sediment leukocyte count by microscopy (number/high power field ) RARE NRG Bacteria detection in urine sediment by light microscopy TRACE NRG Squamous epithelial cells detection in urine sediment by light microscopy 2-5 NRG Crystals detection in urine sediment by light microscopy NONE NRG Casts detection in urine sediment by light microscopy NONE NRG Mucus detection in urine sediment by light microscopy LARGE NRG Complete urinalysis with reflex to culture NO NRG TSH - 12/16/17 10:38 TSH 1.48 mIU/L NRG Encounters ACCT No. Visit Date/Time Discharge Status Pt. Type Provider Facility Loc./Unit Complaint [id number] 03/18/2012 14:59:00 03/18/2012 23:59:59 CLS Outpatient ROSA MARIA CARDOZA PHD [id number] 02/05/2012 17:05:00 02/05/2012 23:59:59 CLS Outpatient [id number] 01/03/2012 16:10:00 01/03/2012 23:59:59 CLS Outpatient ROSA MARIA CARDOZA PHD [id number] 12/16/2017 10:20:00 Document Registration [id number] 01/21/2017 02:12:00 01/21/2017 04:46:00 DIS Outpatient LEATHA MOCTEZUMA DO [facility] ER VOMITING [id number] 05/05/2013 03:06:00 05/05/2013 04:07:00 DIS Emergency LALO CHOU, ADNREAS Nunez [facility] ER ETOH [id number] 09/06/2012 03:40:00 09/06/2012 07:46:00 DIS Emergency KELVIN CHOU, JACKIE Arreaga [facility] ER ETOH
[2017-12-29] MEDS ORDERED: CEPH-507 PO (12:15)
--- NOTE | 2017-12-29 12:16 | ED Integumentary General ---
General Chief Complaint: Skin/Wound Problems Stated Complaint: BITES FROM BLACK , KNOT ON CHEEK History of Present Illness Date Seen by Provider: Dec 29, 2017 Time Seen by Provider: 12:00 Initial Comments 22-year-old female presents for 3 possible spider bite sites on her right neck and cheek. She reports that she has been staying with a friend and they haven't seen spiders in the home. She did not see or feel a spider bite her. She mainly complains of pruritus at the sites. Timing/Duration: yesterday Possible Cause: insect bite Associated Symptoms: denies symptoms Allergies and Home Medications Allergies Coded Allergies: No Known Drug Allergies (Unverified , 09/06/12) Home Medications Cephalexin 500 Mg Capsule, 500 MG PO Q8H Prescribed by: FRIDA CASTRO on 12/29/17 1215 Lactobacillus Acidophilus 1 Gm Powder, 1 GM MC QID Prescribed by: LEATHA MOCTEZUMA on 01/21/17 0440 Ondansetron 4 Mg Tab.rapdis, 4 MG PO Q4H Prescribed by: LEATHA MCOTEZUMA on 01/21/17 0346 Patient Home Medication List Home Medication List Reviewed: Yes Review of Systems Review of Systems Constitutional: no symptoms reported, see HPI Skin: see HPI, change in color, lesions, pruritus All Other Systems Reviewed Negative Unless Noted: Yes Past Jjzfhuf-Smhgxx-Jnxtab Hx Past Med/Social Hx: Reviewed Nursing Past Med/Soc Hx Patient Social History Alcohol Use: Occasionally Uses Recreational Drug Use: Yes Drug of Choice: XANAX--NOT PRESCRIBED TO HER;TESTED + FOR THC, BENZO'S & OXYCODONE 01/21/17 Type Used: Cigarettes 2nd Hand Smoke Exposure: Yes Recent Foreign Travel: No Contact w/Someone Who Travel: No Recent Hopitalizations: No Physical Abuse: No Sexual Abuse: No Mistreated: No Fear: No Immunizations Up To Date Tetanus Booster (TDap): Unknown Seasonal Allergies Seasonal Allergies: No Past Medical History Surgeries: No Respiratory: No Cardiac: No Neurological: No Reproductive Disorders: No Female Reproductive Disorders: Denies Sexually Transmitted Disease: No Genitourinary: No Gastrointestinal: No Musculoskeletal: No Endocrine: No HEENT: No Cancer: No Psychosocial: No Integumentary: No Blood Disorders: No Physical Exam Vital Signs Vital Signs - First Documented 12/29/17 12:05 Temp 97.5 Pulse 117 Resp 16 B/P (MAP) 124/69 (87) Pulse Ox 98 Capillary Refill : General Appearance: WD/WN, no apparent distress Neck: non-tender, full range of motion; No lymphadenopathy (R), No lymphadenopathy (L); other (two a raised areas to right upper neck, one additional lesion proximal to right ear, mild erythema, no induration or fluctuance) Cardiovascular: normal peripheral pulses, regular rate, rhythm Respiratory: chest non-tender, lungs clear, normal breath sounds Gastrointestinal: normal bowel sounds, non tender, soft Neurologic/Psychiatric: no motor/sensory deficits, alert, normal mood/affect, oriented x 3 Skin: normal color, warm/dry Skin Problem Location: neck Skin Problem Character: macules Progress/Results/Core Measures Results/Orders Vital Signs/I&O 12/29/17 12/29/17 12:05 12:27 Temp 97.5 Pulse 117 100 Resp 16 16 B/P (MAP) 124/69 (87) 123/57 (79) Pulse Ox 98 98 Departure Impression Primary Impression: Insect bite Qualified Codes: S10.16XA - Insect bite (nonvenomous) of throat, initial encounter; W57.XXXA - Bitten or stung by nonvenomous insect and other nonvenomous arthropods, initial encounter Additional Impression: Cellulitis, neck Disposition: 01 HOME, SELF-CARE Condition: Improved Departure-Patient Inst. Decision time for Depature: 12:10 Referrals: GEN CISNEROS DO (PCP/Family) Primary Care Physician Patient Instructions: Cellulitis (Skin Infection), Adult (DC), Insect Bites and Stings (DC) Add. Discharge Instructions: Take antibiotic as prescribed. You may alternate between Tylenol 650 mg and ibuprofen 600 mg as needed for pain or fever. You may take Benadryl 25 mg every 8 hours as needed for itching. Follow-up with your primary care provider in 2-3 days if symptoms are not improving or worsen. Do not apply any warm compressions to the area. You may apply ice packs or cool washcloths as needed. Return to emergency department if symptoms worsen or new, urgent health care problems. All discharge instructions reviewed with patient and/or family. Voiced understanding. Scripts Cephalexin (Keflex) 500 Mg Capsule 500 MG PO Q8H, #21 CAP 0 Refills Prov: FRIDA CASTRO 12/29/17 FRIDA CASTRO Dec 29, 2017 12:16
[2017-12-29 12:27] VITALS: BP 123/57
== END 2017-12-29 12:27 | disposition home or self-care (01) ==
LOC: EDUNIT# 11:41 → ER 11:42
DX: S10.16XA Insect bite (nonvenomous) of throat, initial encounter (principal); L03.221 Cellulitis of neck; Z77.22 Contact with and (suspected) exposure to environmental tobacco smoke (acute) (chronic); W57.XXXA Bitten or stung by nonvenomous insect and other nonvenomous arthropods, initial encounter
CPT/HCPCS: 99282